=== PATIENT | male | born 1990 | race Caucasian/White ===

== ENCOUNTER 2021-09-29 03:17 | Emergency (ER) | payer OTHER, SELFPAY ==
[2021-09-29 04:24] VITALS: BP 118/85; PULSE 101; RESP 18; TEMP 37.7; O2SAT 96; BMI 30.3
[2021-09-29 04:46] LABS: Strep A Nucleic Acid Negative (Negative)
[2021-09-29 04:52] LABS: COVID-19 Test Negative (Negative)
[2021-09-29 05:50] VITALS: BP 114/76; PULSE 102; RESP 16; TEMP 37.1; O2SAT 96
--- NOTE | 2021-09-29 05:54 | PC.NURSE ---
Pt resting in NAD, breathing with ease on RA, skin warm dry and normal in appearance for age and race. Pt provided update on lab results of covid and strep negative status. Pt verbalizes understanding. Pt continues to await MD garcia. Pt calm and cooperative with pt care at this time. Stretcher remains in lowest locked position, rails raised, call saeed within reach.
--- NOTE | 2021-09-29 06:45 | ED.URI ---
HPI - URI/Sore Throat General Chief Complaint: General Medical Stated Complaint: throat infection ? Time Seen by Provider: 09/29/21 06:44 Source: patient Mode of arrival: ambulatory Limitations: no limitations History of Present Illness MD elicited complaint: sore throat Pertinent past history: other (vaccinated but exposed to COVID person 1 week ago) Onset (ago): week(s) (1) Consistency: constant Severity: moderate Description of mucous: clear Able to tolerate fluids by mouth: Yes Exacerbating factors: swallowing Relieving factors: nothing Context: sick contacts Associated symptoms: denies other symptoms Treatments prior to arrival: none Related Data Previous Rx's Medication Instructions Recorded amoxicillin 875 mg-potassium 1 tab PO BID #14 tab 09/29/21 clavulanate 125 mg tablet (Augmentin) Allergies Allergy/AdvReac Type Severity Reaction Status Date / Time No Known Allergies Allergy Verified 09/29/21 04:27 Review of Systems Review of Systems: Constitutional : no Fever, positive Chills, positive fatigue, positive Malaise ENT/Mouth : positive sore throat,no runny nose Eyes: No Discharge Cardiovascular : No Chest Pain, No SOB Respiratory : No Cough, No Sputum Gastrointestinal : No Nausea, No Vomiting, No Diarrhea Genitourinary : No Dysuria, No Urinary Frequency Musculoskeletal : no Myalgia Skin : No rash Neuro : No Headache PMFSH Past Medical History Medical History No known health problems Social History Social History (Updated 09/29/21 @ 07:21 by Mendy Chandler DO) Patient Tobacco Use Status: Never used Tobacco Advance Directives: No Advance Directives Information Provided: No Physical Exam Vital Signs: Vital Signs: Last Vital Signs Temp 98.7 F 09/29/21 05:50 Pulse 99 09/29/21 07:16 Resp 16 09/29/21 07:16 BP 115/70 09/29/21 07:16 Pulse Ox 97 09/29/21 07:16 BMI result Body Mass Index 30.3 Appearance: Alert. Oriented X3. No acute distress. Eyes: Pupils equal, round and reactive to light. 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 Pulses normal. Respiratory: No respiratory distress. Breath sounds normal. Abdomen: Soft and nontender. Skin: Skin warm and dry. Normal skin color. Normal skin turgor. Extremities: No lower extremity edema. No calf ttp Neuro: Oriented X 3. No motor deficit. No sensory deficit. 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 Lab Data Labs: Lab Results 09/29/21 09/29/21 Range/Units 04:31 04:31 COVID-19 (NOLAN) Negative (Negative) COVID-19 Clin Com See Note S. pyogenes GrpA ILDEFONSO Negative (Negative) Discharge Plan Discharge Clinical Impression: Pharyngitis Qualifiers: Pharyngitis/tonsillitis etiology: unspecified etiology Qualified Code(s): J02.9 - Acute pharyngitis, unspecified Patient Disposition: Home, Self-Care Instructions: Pharyngitis (ED) Additional Instructions: return to ED for any worsening symptoms or concerns if no better after 4 doses or if you feel worse please return Prescriptions: New amoxicillin-pot clavulanate [Augmentin] 875-125 mg tablet 1 tab PO BID Qty: 14 RF: 0
[2021-09-29] MEDS: Amoxicillin 500 MG CAPSULE PO (07:15)
[2021-09-29 07:16] VITALS: BP 115/70; PULSE 99; RESP 16; O2SAT 97
== END 2021-09-29 07:23 | disposition home or self-care (01) ==
PROVIDERS: Emergency Provider Emergency Medicine
DX: J02.9 Acute pharyngitis, unspecified (principal); Z20.822 Contact with and (suspected) exposure to COVID-19; Z79.899 Other long term (current) drug therapy
CPT/HCPCS: 36415; 87635; 87651; 99283; 99284

== ENCOUNTER 2022-01-28 01:40 | Emergency (ER) | payer OTHER, SELFPAY ==
[2022-01-28] MEDS: Acetaminophen 325 MG TABLET 975 MG PO (02:10)
[2022-01-28 02:15] VITALS: BP 140/69; PULSE 112; RESP 14; TEMP 38.7; O2SAT 98; BMI 30.3
[2022-01-28 02:35] LABS: COVID-19 Test Negative (Negative); IDNOW Serial# 16C4AD1C; Influenza A Positive (Negative)
[2022-01-28 02:36] LABS: Influenza B2 Negative (Negative)
--- NOTE | 2022-01-28 03:13 | ED_ITS ---
HPI - URI/Sore Throat General Chief Complaint: Fever Stated Complaint: Fever/Cough Time Seen by Provider: 01/28/22 03:13 Source: patient Mode of arrival: ambulatory History of Present Illness HPI Narrative: 41-year-old male without significant past medical history, denies any use of cigarettes or asthma who presents with onset of cough since Saturday evening into that is productive in nature but otherwise denies sore throat, h eadache, ear pain, but has had fevers that have been maximal to 102. Related Data Previous Rx's Medication Instructions Recorded amoxicillin 875 mg-potassium 1 tab PO BID #14 tab 09/29/21 clavulanate 125 mg tablet (Augmentin) Allergies Allergy/AdvReac Type Severity Reaction Status Date / Time No Known Allergies Allergy Verified 09/29/21 04:27 Review of Systems Review of Systems: Pertinent positives and negatives as stated in HPI 10 point review of systems is otherwise negative. PMFSH Past Medical History Source: nursing notes reviewed Medical History No known health problems Social History Social History Alcohol intake: never Patient Tobacco Use Status: Never used Tobacco Use of substances other than those prescribed or required for medical reasons: No Advance Directives: No Advance Directives Information Provided: No Physical Exam Vital Signs: Vital Signs: Last Vital Signs Temp 101.7 F H 01/28/22 02:15 Pulse 112 H 01/28/22 02:15 Resp 14 01/28/22 02:15 BP 140/69 H 01/28/22 02:15 Pulse Ox 98 01/28/22 02:15 BMI result Body Mass Index 30.3 VITAL SIGNS: Reviewed. GENERAL: Well developed, well nourished, in no acute distress. HEAD: Normocephalic/atraumatic EYES: PERRLA, EOMI EARS: Ext canals without abnormality, TMs non-bulging and non-erythematous NOSE: Nares patent bilateral OROPHARYNX: no oral lesions noted, posterior pharynx clear but with erythema without noted tonsillar enlargement/erythema/exudates NECK: Supple, no adenopathy LUNGS: Normal breath sounds, no tachypnea/wheeze/rhonchi/rales. SpO2<98> CARDIOVASCULAR: Regular rate and rhythm without noted murmurs ABDOMEN: Soft, non-tender, non-distended with bowel sounds. MUSCULOSKELETAL: No tenderness, deformities, or effusions noted on gross inspection. EXTREMITIES: No cyanosis, clubbing or edema. SKIN: Inspection of the skin reveals no rashes NEUROLOGIC: Alert and oriented x 4. Strength and sensation to light touch were grossly intact x 4. Course Course Course Narrative: 31-year-old male with history and clinical presentation consistent with viral syndrome and on review of all investigations patient is noted to have influenza A. This time he declines Tamiflu and is otherwise discharged home in stable condition after having received combination analgesics. MDM - URI/Sore Throat Lab Data Labs: Lab Results 01/28/22 01/28/22 Range/Units 02:12 02:12 COVID-19 (NOLAN) Negative (Negative) COVID-19 Clin Com See Note Influenza Type A (ILDEFONSO) Positive A (Negative) Influenza Type B (ILDEFONSO) Negative (Negative) Influenza A & B Note See Note Discharge Plan Discharge Clinical Impression: Viral infection, Influenza A Patient Disposition: Home, Self-Care Instructions: Viral Syndrome (ED), Influenza (ED) Additional Instructions: 1. Tylenol 1000 mg, orally, every 6 hours as needed for body aches, temperatures greater than 100.4, headaches. Do not exceed 4000 mg within 24 hours. 2. Ibuprofen 400 mg, orally with milk or food, every 6 hours as needed for body aches, temperatures greater than 100.4, headaches. 3. Be sure to rest and drink plenty of water and recommend [id number] cough suppressant. Return to the ER for worsening symptoms. Prescriptions: No Action amoxicillin-pot clavulanate [Augmentin] 875-125 mg tablet 1 tab PO BID Qty: 14 0RF Interventions: ED Discharge Assessment Last Done: 01/28/22 03:15
== END 2022-01-28 03:29 | disposition home or self-care (01) ==
PROVIDERS: Emergency Provider Student in an Organized Health Care Education/Training Program
DX: J10.1 Influenza due to other identified influenza virus with other respiratory manifestations (principal); B34.9 Viral infection, unspecified; Z20.822 Contact with and (suspected) exposure to COVID-19
CPT/HCPCS: 87502; 87635; 99283; 99284

== ENCOUNTER 2022-06-07 13:00 | Emergency (ER) | payer OTHER, SELFPAY ==
[2022-06-07 13:42] VITALS: BP 131/71; PULSE 88; RESP 18; TEMP 37.3; O2SAT 97; BMI 30.3
--- NOTE | 2022-06-07 13:44 | ECG_ITS ---
Test Reason : muscle spasm Blood Pressure : / mmHG Vent. Rate : 077 BPM Atrial Rate : 077 BPM P-R Int : 160 ms QRS Dur : 086 ms QT Int : 356 ms P-R-T Axes : 034 043 044 degrees QTc Int : 402 ms Normal sinus rhythm Normal ECG No previous ECGs available Referred By: Generic ED Physician Electronically Signed By:HENRY CHIANG
[2022-06-07 14:28] LABS: MANUAL DIFF FLAG NO
[2022-06-07 14:31] LABS: Basophils Percent Auto 0.5 % (0-2); Eosinophils Absolute Auto 0.2 X10*3/uL (0.0-0.4); Eosinophils Percent Auto 2.9 % (0-4); Hematocrit 42.8 % (42.0-52.0); Hemoglobin 15.9 g/dl (14.0-18.0); Imm Gran Abs Auto 0.05 X10*3/uL (0.00-0.03); Imm Gran Pct Auto 0.6 % (0.0-0.4); Lymphocytes Absolute Auto 1.7 X10*3/uL (1.2-4.9); Mean Corpuscular HGB Conc 37.1 g/dl (31.0-36.0); Mean Corpuscular Hemoglobin 31.8 pg (27.0-33.0); Mean Corpuscular Volume 85.6 fL (80.0-98.0); Mean Platelet Volume 9.8 fL (9.4-12.4); Monocytes Absolute Auto 0.7 X10*3/uL (0.1-1.2); Monocytes Percent Auto 8.8 % (2-11); Neutrophils Absolute Auto 5.3 x10*3/uL (2.0-8.3); Neutrophils Percent Auto 66.2 % (45-73); Platelet Count 265 X10*3/uL (160-400); Red Cell Distribution Width 12.6 % (11.0-16.0); White Blood Count 7.9 X10*3/uL (4.8-10.8)
[2022-06-07 14:45] LABS: Anion Gap 14 (12-20); Blood Urea Nitrogen 9 mg/dL (9-16); Calcium 9.5 mg/dL (8.4-10.2); Carbon Dioxide 28 mmol/L (22-29); Chloride 102 mmol/L (96-108); Creatinine Clr Calc Pharmacy 152.5; Estimated Glomerular Filt Rate > 60; Glucose Random 99 mg/dL (60-115); Potassium 3.9 mmol/L (3.3-5.1); Sodium 140 mmol/L (135-145)
[2022-06-07 15:09] LABS: Magnesium 2.2 mg/dL (1.6-2.6)
--- NOTE | 2022-06-07 15:17 | ED.GENADULT ---
HPI - General Adult General Chief complaint: General Medical Stated complaint: muscle spasm in chest Time Seen by Provider: 06/07/22 14:31 Source: patient Mode of arrival: ambulatory Limitations: no limitations History of Present Illness HPI narrative: 32 yo male presents to the ER for evaluation of left sided chest muscle twitches that started on his ride into work this morning at 6am. He reports a history of similar episodes. He states the twitching type pain is in between his ribs on the left side. It comes and goes. It was pretty constant when he got to work today so he came to the ER for evaluation. He states he has been worked up for chest pain before and has been told that it was not his heart. He admits to ongoing anxiety and feels it may be related to anxiety. He denies any shortness of breath, dyspnea, diaphoresis, nausea. No history of early heart disease in the family. He denies any injury or heavy lifting. MD complaint: Left-sided chest wall pain/muscle twitching Onset (ago): hour(s) Location: chest Radiation: non-radiation Severity: moderate Severity scale (1-10): 3 Quality: aching Pain Consistency: constant Relieving factors: none Exacerbating factors: none Associated symptoms: denies other symptoms Treatments prior to arrival: NSAID Related Data Previous Rx's Medication Instructions Recorded amoxicillin 875 mg-potassium 1 tab PO BID #14 tabs 09/29/21 clavulanate 125 mg tablet (Augmentin) Allergies Allergy/AdvReac Type Severity Reaction Status Date / Time No Known Allergies Allergy Verified 09/29/21 04:27 Review of Systems Review of Systems: Constitutional: No Fever, No Chills ENT/Mouth: No sore throat, No Rhinorrhea Cardiovascular: + Chest Pain, No SOB, No Orthopnea, No Edema Respiratory: No Cough, No Sputum, No Wheezing, No dyspnea Gastrointestinal: No Nausea, No Vomiting, No Diarrhea, No abdominal Pain Musculoskeletal: No joint pain, No Myalgias Skin: No Skin Lesions, No rash Neuro: No Weakness, No Numbness, No Dizziness, No Headache Psych:+Anxiety/Panic, No Depression Heme/Lymph: No Bruising, No Lymphadenopathy PMFSH Past Medical History Medical History No known health problems Social History Social History Alcohol intake: never Patient Tobacco Use Status: Never used Tobacco Advance Directives: No Advance Directives Information Provided: No Physical Exam ED Vital Signs: Vital Signs - 24 hr 06/07/22 13:42 Temperature 99.1 F Pulse Rate 88 Respiratory Rate 18 Blood Pressure 131/71 Pulse Oximetry 97 Oxygen Delivery Method Room Air BMI result Body Mass Index 30.3 Appearance: Alert. Oriented X3. No acute distress. Eyes: Pupils equal, round and reactive to light. ENT: Pharynx normal. Neck: Normal inspection. Neck supple. CVS: Normal heart rate and rhythm. Pulses normal. No anterior chest wall tenderness Respiratory: No respiratory distress. Breath sounds normal. Skin: Skin warm and dry. Normal skin color. Normal skin turgor. No rashes. Extremities: No lower extremity edema. Neuro/psych: Oriented X 3. No motor deficit. No sensory deficit. Makes brief eye contact, anxious. Course Course Course Narrative: 32 yo healthy male presenting with left sided chest muscle twitching and discomfort since this morning. History of similar episodes in the past. History of anxiety that is not treated. On arrival to the ER his vital signs are within normal limits. His exam is benign. His EKG did not show any ischemic changes. His lab workup was unremarkable. He is anxious. He has no cardiac risk factors. His ?twitching? was most likely due to anxiety. He reports his symptoms are worse as he got nervous about it. They are improved now. He is declining any need for counseling, therapy referral. He will make changes at home to his triggers. He has a primary care doctor he can follow-up with. Comfortable with discharge home. Medical Decision Making Lab Data Result diagrams: 06/07/22 14:14 06/07/22 14:14 Labs: Lab Results 06/07/22 06/07/22 Range/Units 14:14 14:14 WBC 7.9 (4.8-10.8) X10*3/uL RBC 5.00 (4.60-5.80) X10*6/uL Hgb 15.9 (14.0-18.0) g/dl Hct 42.8 (42.0-52.0) % MCV 85.6 (80.0-98.0) fL MCH 31.8 (27.0-33.0) pg MCHC 37.1 H (31.0-36.0) g/dl RDW 12.6 (11.0-16.0) % Plt Count 265 (160-400) X10*3/uL MPV 9.8 (9.4-12.4) fL Immature Gran % (Auto) 0.6 H (0.0-0.4) % Neut % (Auto) 66.2 (45-73) % Lymph % (Auto) 21.0 (20-40) % Darke % (Auto) 8.8 (2-11) % Eos % (Auto) 2.9 (0-4) % Baso % (Auto) 0.5 (0-2) % Lymph # (Auto) 1.7 (1.2-4.9) X10*3/uL Darke # (Auto) 0.7 (0.1-1.2) X10*3/uL Eos # (Auto) 0.2 (0.0-0.4) X10*3/uL Baso # (Auto) 0.0 (0.0-0.2) X10*3/uL Abs Immat Gran (auto) 0.05 H (0.00-0.03) X10*3/uL Absolute Neuts (auto) 5.3 (2.0-8.3) x10*3/uL Absolute Nucleated RBC 0.000 (0.0-0.012) X10*3/uL Nucleated RBC % (auto) 0.0 (0.0-0.2) /100WBC Sodium 140 (135-145) mmol/L Potassium 3.9 (3.3-5.1) mmol/L Chloride 102 (96-108) mmol/L Carbon Dioxide 28 (22-29) mmol/L Anion Gap 14 (12-20) BUN 9 (9-16) mg/dL Creatinine 0.89 (0.5-1.4) mg/dL Estim Creat Clear Calc 152.5 Estimated GFR > 60 Random Glucose 99 (60-115) mg/dL Calcium 9.5 (8.4-10.2) mg/dL Magnesium 2.2 (1.6-2.6) mg/dL Critical Care Time Critical Care Time Critical Care Time: No Discharge Plan Discharge Clinical Impression: Muscle twitch, Anxiety Patient Disposition: Home, Self-Care Instructions: Muscle Spasm (ED), Anxiety (ED) Additional Instructions: Your workup today was unremarkable. Recommend following up your primary care doctor. If you develop new or worsening symptoms call 911 or come back to the ER for further evaluation. Prescriptions: No Action amoxicillin-pot clavulanate [Augmentin] 875-125 mg tablet 1 tab PO BID Qty: 14 0RF Interventions: ED Discharge Assessment Last Done: 06/07/22 15:51 Discharge Date/Time: 06/07/22 16:02
== END 2022-06-07 16:02 | disposition home or self-care (01) ==
PROVIDERS: Physician Assistant; Emergency Provider Emergency Medicine Emergency Medical Services
DX: M62.838 Other muscle spasm (principal); F41.9 Anxiety disorder, unspecified
CPT/HCPCS: 36415; 80048; 83735; 85025; 93005; 99282; 99283

== ENCOUNTER 2022-09-30 13:37 | Emergency (ER) | payer OTHER, SELFPAY ==
[2022-09-30 13:43] VITALS: BP 122/74; PULSE 94; RESP 16; TEMP 36.9; O2SAT 96; BMI 29.7
--- NOTE | 2022-09-30 13:45 | ED_ITS ---
HPI - URI/Sore Throat General Chief Complaint: Fever <PATRICIA Dee - Last Filed: 09/30/22 13:47> Stated Complaint: Fever <PATRICIA Dee - Last Filed: 09/30/22 13:47> Time Seen by Provider: 09/30/22 15:17 <PATRICIA Dee - Last Filed: 09/30/22 13:47> Source: patient <PATRICIA Yin - Last Filed: 10/01/22 10:08> Mode of arrival: ambulatory <PATRICIA Yin - Last Filed: 10/01/22 10:08> Limitations: no limitations <PATRICIA Yin Last Filed: 10/01/22 10:08> History of Present Illness HPI Narrative: 32-year-old male presents to ED for fever and body aches for the past 3 days. Patient denies any chest pain, shortness of breath, coughing, weakness, or dizziness. <PATRICIA Yin Last Filed: 10/01/22 10:08> Related Data Home Medications: Previous Rx's Medication Instructions Recorded amoxicillin 875 mg-potassium 1 tab PO BID #14 tabs 09/29/21 clavulanate 125 mg tablet (Augmentin) <PATRICIA Dee - Last Filed: 09/30/22 13:47> Allergies/Adverse Reactions: Allergies Allergy/AdvReac Type Severity Reaction Status Date / Time No Known Allergies Allergy Verified 09/29/21 04:27 <PATRICIA Dee - Last Filed: 09/30/22 13:47> Review of Systems Review of Systems: Fever body aches <PATRICIA Yin Last Filed: 10/01/22 10:08> Yes all other systems are reviewed and are negative <PATRICIA Yin - Last Filed: 10/01/22 10:08> PMFSH Past Medical History Medical History: Medical History No known health problems <PATRICIA Dee Last Filed: 09/30/22 13:47> Social History Social History: Social History Alcohol intake: never Patient Tobacco Use Status: Never used Tobacco Advance Directives: No Advance Directives Information Provided: No <PATRICIA Dee Last Filed: 09/30/22 13:47> Physical Exam Vital Signs: Vital Signs: Last Vital Signs Temp 100.4 F 09/30/22 14:34 Pulse 86 09/30/22 14:34 Resp 16 09/30/22 14:34 BP 119/78 09/30/22 14:34 Pulse Ox 100 09/30/22 14:34 O2 Del Method 09/30/22 14:34 BMI result Body Mass Index 29.7 <PATRICIA Dee - Last Filed: 09/30/22 13:47> Vital Signs: Last Vital Signs Temp 100.4 F 09/30/22 14:34 Pulse 86 09/30/22 14:34 Resp 16 09/30/22 14:34 BP 119/78 09/30/22 14:34 Pulse Ox 100 09/30/22 14:34 O2 Del Method 09/30/22 14:34 BMI result Body Mass Index 29.7 <PATRICIA Yin - Last Filed: 10/01/22 10:08> Const: General: cooperative, healthy appearing, comfortable, no acute distress, well developed, alert, awake and Physically active; No acute distress <PATRICIA Yin Last Filed: 10/01/22 10:08> Orientation/consciousness: oriented to person, oriented to place, oriented to time and patient oriented x3 <PATRICIA Yin Last Filed: 10/01/22 10:08> HEENT: Head: Yes normal to inspection, Yes No palpable skull fracture present, Yes normocephalic and Yes atraumatic <PATRICIA Yin Last Filed: 10/01/22 10:08> Ears: hearing grossly normal bilaterally, external ears normal, TM's normal bilaterally, EAC's normal, mastoids normal and no periauricular adenopathy <PATRICIA Yin Last Filed: 10/01/22 10:08> General nose exam: Normal external nose present, Normal nares present and No nasal polyps present <PATRICIA Yin Last Filed: 10/01/22 10:08> Teeth and gingiva: dentition normal and gingiva normal <PATRICIA Yin Last Filed: 10/01/22 10:08> Throat: Yes posterior oropharynx normal and Yes tonsils normal <Gabriel lynch [facility] Last Filed: 10/01/22 10:08> Eyes: General: appearance normal, both eyes and all related structures <Gabriel Hidalgo [facility] Last Filed: 10/01/22 10:08> Neck: Neck: Yes normal visual inspection, Yes full ROM, Yes no lymphadenopathy, Yes no meningeal signs, Yes trachea midline, Yes supple, No anterior neck swelling and No tender <Gabrielbetsy Hidalgo [facility] Last Filed: 10/01/22 10:08> Chest: Chest palpation & inspection: normal inspection of the chest and normal palpation of entire chest wall <Gabriel Rocky [facility] Last Filed: 10/01/22 10:08> Resp: Effort & Inspection: normal respiratory effort and able to speak in complete sentences <Gabriel Rocky [facility] Last Filed: 10/01/22 10:08> Auscultation: clear to auscultation bilaterally <Gabriel Rocky [facility] Last Filed: 10/01/22 10:08> Cardio: Jugular venous distension: no JVD <Gabriel Rocky [facility] Last Filed: 10/01/22 10:08> Heart sounds: S1 normal heart sound present and S2 normal heart sound present <Gabriel Rocky [facility] Last Filed: 10/01/22 10:08> GI: Inspection: Yes normal to inspection and No abdominal wall ecchymosis <Gabriel Rocky [facility] Last Filed: 10/01/22 10:08> Palpation (GI): Soft to palpation, not firm, nontender, no guarding and not rigid <Gabriel Rocky [facility] Last Filed: 10/01/22 10:08> : General: No CVA tenderness and Yes no CVA tenderness <Gabriel Rocky PATRICIA Last Filed: 10/01/22 10:08> Back/Spine/Pelvis: Back: no CVA tenderness, No CVA tenderness and No back tenderness <Gabriel Rocky [facility] Last Filed: 10/01/22 10:08> Skin: General skin exam: no rashes or lesions noted and elasticity normal <Gabriel Rocky [facility] Last Filed: 10/01/22 10:08> Neuro: General: oriented to person, oriented to place, oriented to time, patient oriented x3, gait normal, tone normal, no meningeal signs, no focal motor deficits and CN's II-XI intact bilaterally <PATRICIA Yin - Last Filed: 10/01/22 10:08> Extrem: General: Yes normal to inspection and Yes full ROM <PATRICIA Yin Last Filed: 10/01/22 10:08> Psych: Appearance: grossly normal, well kempt and not disheveled <PATRICIA Yin - Last Filed: 10/01/22 10:08> Course Course Course Narrative: RME-13:45PM - 32yoM c No Sig PMHx is presenting to the ED c c/o fevers and body aches since saturday. Everyone in his family has had a stomach Bug. Denies any ear pain, sore throat, nasal congestion/rhinorrhea, cough, nausea/vomiting/diarrhea, abdominal pain, rashes or any other symptoms complaints or concerns at this time. Denies recent travel. Plan: COVID/RSV/flu swab ordered at this time. Patient is stable to go back to the waiting room to be evaluated in EM. <PATRICIA Dee - Last Filed: 09/30/22 13:47> Reevaluation(s) Reevaluation #1: Was ordered patient COVID positive <PATRICIA Yin - Last Filed: 10/01/22 10:08> Time: 16:28 <PATRICIA Yin - Last Filed: 10/01/22 10:08> Medications Administered Discontinued Medications Generic Name Dose Route Start Last Admin Trade Name Freq PRN Reason Stop Dose Admin Ibuprofen 600 mg 09/30/22 14:29 09/30/22 14:40 Ibuprofen 600 Mg Tablet PO 09/30/22 14:30 600 mg ONCE ONE Administration <PATRICIA Dee Last Filed: 09/30/22 13:47> Medications Administered Discontinued Medications Generic Name Dose Route Start Last Admin Trade Name Freq PRN Reason Stop Dose Admin Ibuprofen 600 mg 09/30/22 14:29 09/30/22 14:40 Ibuprofen 600 Mg Tablet PO 09/30/22 14:30 600 mg ONCE ONE Administration <PATRICIA Yin Last Filed: 10/01/22 10:08> Medical Decision Making Medical Decision Making MDM Narrative: 32-year-old male with history of fever and body aches. Positive COVID. Not suspecting pneumonia, meningitis, or any abdominal or etiology. No observation, admission, further workup needed <PATRICIA Yin Last Filed: 10/01/22 10:08> Differential Diagnosis Differential Diagnoses: The differential diagnosis associated with the presentation includes (Pneumonia) <PATRICIA Yin Last Filed: 10/01/22 10:08> Lab Data Labs: Lab Results 09/30/22 Range/Units 14:41 Influenza Type A (PCR) NEGATIVE (Negative) Influenza Type B (PCR) NEGATIVE (Negative) RSV RNA Qual (PCR) NEGATIVE (Negative) SARS-CoV-2 RNA (RT-PCR) POSITIVE A (Negative) <PATRICIA Dee Last Filed: 09/30/22 13:47> Lab Results 09/30/22 Range/Units 14:41 Influenza Type A (PCR) NEGATIVE (Negative) Influenza Type B (PCR) NEGATIVE (Negative) RSV RNA Qual (PCR) NEGATIVE (Negative) SARS-CoV-2 RNA (RT-PCR) POSITIVE A (Negative) <PATRICIA Yin Last Filed: 10/01/22 10:08> Discharge Plan Discharge Clinical Impression: COVID-19 <PATRICIA Dee Last Filed: 09/30/22 13:47> Patient Disposition: Home, Self-Care <PATRICIA Dee Last Filed: 09/30/22 13:47> Instructions: COVID-19 (Coronavirus Disease 2019) (ED) <PATRICIA Dee Last Filed: 09/30/22 13:47> Additional Instructions: You are positive for COVID-19. Recommend isolation for at least 7 days. Return to the ED for any chest pain, shortness of breath, weakness, leg swelling, calf pain, coughing up blood, O2 saturation less than 93% on any home portable O2 saturation, or any other concerning symptoms. <PATRICIA Dee Last Filed: 09/30/22 13:47> Prescriptions: No Action amoxicillin-pot clavulanate [Augmentin] 875-125 mg tablet 1 tab PO BID Qty: 14 0RF <PATRICIA Dee Last Filed: 09/30/22 13:47> Stand Alone Forms: Work/School Release <PATRICIA Dee - Last Filed: 09/30/22 13:47> Interventions: ED Discharge Assessment Last Done: 09/30/22 16:50 <PATRICIA Dee - Last Filed: 09/30/22 13:47> Discharge Date/Time: 09/30/22 16:51 <PATRICIA Dee - Last Filed: 09/30/22 13:47> Print Language: Dutch <PATRICIA Dee - Last Filed: 09/30/22 13:47>
[2022-09-30 14:34] VITALS: BP 119/78; PULSE 86; RESP 16; TEMP 38; O2SAT 100
[2022-09-30] MEDS: Ibuprofen 600 MG TABLET PO (14:40)
--- NOTE | 2022-09-30 14:43 | PC.NURSE ---
pt. complains of fever x 3 days and headache, body aches. he has a tempt of 100.4. gave him ibuprofen. sent swab for sars/flu/rsv to lab
[2022-09-30 15:28] LABS: Influenza A PCR NEGATIVE (Negative); Influenza B PCR NEGATIVE (Negative); Resp Syncy Virus RNA Qual PCR NEGATIVE (Negative); SARS COV2 PCR INHOUSE POSITIVE (Negative)
== END 2022-09-30 16:51 | disposition home or self-care (01) ==
PROVIDERS: Physician Assistant Medical; Emergency Provider Emergency Medicine
DX: U07.1 COVID-19 (principal); R50.9 Fever, unspecified; M79.10 Myalgia, unspecified site
CPT/HCPCS: 0241U; 99284

== ENCOUNTER 2024-01-25 07:43 | Emergency (ER) | payer OTHER, SELFPAY ==
[2024-01-25 07:45] VITALS: BP 110/85; PULSE 110; RESP 16; TEMP 36.8; O2SAT 99; BMI 25.8
[2024-01-25 08:04] LABS: Basophils Absolute Auto 0.1 X10*3/uL (0.0-0.2); Basophils Percent Auto 0.5 % (0-2); Eosinophils Percent Auto 0.1 % (0-4); Hematocrit 48.1 % (42.0-52.0); Hemoglobin 17.8 g/dl (14.0-18.0); Imm Gran Abs Auto 0.13 X10*3/uL (0.00-0.03); Imm Gran Pct Auto 0.7 % (0.0-0.4); Lymphocytes Absolute Auto 0.4 X10*3/uL (1.2-4.9); Lymphocytes Percent Auto 2.1 % (20-40); MANUAL DIFF FLAG SCAN; Mean Corpuscular Hemoglobin 31.5 pg (27.0-33.0); Mean Corpuscular Volume 85.1 fL (80.0-98.0); Mean Platelet Volume 9.7 fL (9.4-12.4); Monocytes Absolute Auto 0.7 X10*3/uL (0.1-1.2); Monocytes Percent Auto 4.1 % (2-11); Neutrophils Absolute Auto 16.6 x10*3/uL (2.0-8.3); Neutrophils Percent Auto 92.5 % (45-73); Platelet Count 292 X10*3/uL (160-400); Red Blood Count 5.65 X10*6/uL (4.60-5.80); Red Cell Distribution Width 12.7 % (11.0-16.0); SCAN SMEAR FLAG 1; White Blood Count 17.9 X10*3/uL (4.8-10.8)
--- NOTE | 2024-01-25 08:17 | ED_ITS ---
HPI - Nausea/Vomiting/Diarrhea General Chief complaint: Abdominal Pain Stated complaint: whole body cramping up Time Seen by Provider: 01/25/24 07:57 Source: patient Mode of arrival: ambulatory Limitations: no limitations History of Present Illness HPI Narrative: 33-year-old male who presents emergency department for evaluation of ?stomach bug ?. Patient states that his entire family is sick with nausea, vomiting and diarrhea. He states that last night he also became ill. He states he has had multiple episodes of nausea vomiting and diarrhea. He is also complaining of upper abdominal pain. He states that the pain feels like a squeezing sensation which is moderate to severe in intensity. He states he feels very dehydrated, his muscles are cramping, feels lightheaded and dizzy therefore he came to the emergency department for evaluation. Related Data Previous Rx's ?Medication ?Instructions ?Recorded amoxicillin 875 mg-potassium 1 tab PO BID #14 tabs 09/29/21 clavulanate 125 mg tablet (Augmentin) ondansetron 4 mg disintegrating 4 mg PO Q6-8H PRN nausea and 01/25/24 tablet vomiting #14 tabs Allergies Allergy/AdvReac Type Severity Reaction Status Date / Time No Known Allergies Allergy Verified 01/25/24 07:47 Review of Systems 2 Review of Systems: Yes all other systems are reviewed and are negative [facility] Past Medical History [facility] Narrative: Past medical history: None. Social history: He denies tobacco use. Occasionally drinks alcohol. He denies drug use. Medical History No known health problems Social History Social History Alcohol intake: never Patient Tobacco Use Status: Never used Tobacco Use of substances other than those prescribed or required for medical reasons: Yes Substance Use Type Other:: cbd 5d/wk Advance Directives: No Advance Directives Information Provided: No Physical Exam 2 Vital Signs: Vital Signs: Last Vital Signs Temp 99.9 F 01/25/24 10:02 Pulse 104 H 01/25/24 10:02 Resp 18 01/25/24 10:02 BP 106/79 01/25/24 10:02 Pulse Ox 95 01/25/24 10:02 O2 Del Method Room Air 01/25/24 10:02 BMI result Body Mass Index 25.8 Vital signs revealed an elevated heart rate of 110 otherwise unremarkable Exam: General: Awake, alert in no distress Head: Normocephalic, atraumatic EENT: PERRL, Lids normal, sclera normal, conjunctiva normal, nose normal , ears normal, throat without erythema or exudates Neck: Supple, no adenopathy Lung: breath sounds symmetric, no wheezing, rales or rhonchi Chest: symmetric movement, nontender Heart: regular rate and rhythm, normal S1, S2 no murmurs or rubs Abdomen: soft, mild to moderate diffuse tenderness, nondistended, normal bowel sounds Back: no vertebral tenderness, no CVAT Extremities: no deformities, moves all extremities symmetrically Neuro: Awake, alert, oriented, normal speech, cranial nerves intact, moves all extremities symmetrically Psych: Pleasant, cooperative Medications Administered Discontinued Medications Generic Name Dose Route Start Last Admin Trade Name Freq PRN Reason Stop Dose Admin Sodium Chloride 1,000 mls @ 999 mls/hr 01/25/24 08:17 01/25/24 09:37 Ns IV 01/25/24 09:17 Infused .Q1H1M STA Infusion Ketorolac Tromethamine 15 mg 01/25/24 08:17 01/25/24 08:24 Ketorolac Tromethamine 15 Mg/Ml Vial IVPUSH 01/25/24 08:18 15 mg ONCE STA Administration Ondansetron HCl 4 mg 01/25/24 08:17 01/25/24 08:24 Ondansetron Hcl 4 Mg/2 Ml Vial IVPUSH 01/25/24 08:18 4 mg ONCE ONE Administration Medical Decision Making Medical Decision Making [facility] Narrative: 33-year-old male with no significant past medical history who presents emergency department for evaluation of nausea vomiting diarrhea, abdominal pain, cramping, lightheadedness dizziness with symptoms starting last night. The patient states that he has had multiple episodes of vomiting and diarrhea with no blood in the diarrhea or emesis. He is complaining of moderate to severe upper abdominal pain. Differential diagnosis: ?Includes but is not limited to viral syndrome, electrolyte abnormalities, anemia, dehydration Following evaluation was ordered: CBC, CMP, lipase, COVID-19, influenza, RSV Patient was initially treated with the following: Toradol 15 mg IV, Zofran 4 mg IV, normal saline X1 L Course: 12:03 My independent interpretation patient's laboratory evaluation is as follows: WBC elevated 17,900 with left shift 92 % neutrophils. CO2 low 20. BUN elevated 17. Glucose elevated 139. COVID-19, influenza and RSV were negative Patient states that he does feel better but has continued to have nausea, myalgias and arthralgias therefore he was ordered to get 2nd dose of Toradol 15 mg IV Zofran 4 mg IV and a 2nd L of normal saline IV Admission/Observation Consideration of admission/observation: Escalation of care including admission/observation considered Lab Data [facility] Lab Attestation statement: I reviewed the patient's lab results. 01/25/24 07:56 01/25/24 07:56 Labs: Lab Results 01/25/24 01/25/24 Range/Units 07:56 08:29 WBC 17.9 H (4.8-10.8) X10*3/uL RBC 5.65 (4.60-5.80) X10*6/uL Hgb 17.8 (14.0-18.0) g/dl Hct 48.1 (42.0-52.0) % MCV 85.1 (80.0-98.0) fL MCH 31.5 (27.0-33.0) pg MCHC 37.0 H (31.0-36.0) g/dl RDW 12.7 (11.0-16.0) % Plt Count 292 (160-400) X10*3/uL MPV 9.7 (9.4-12.4) fL Immature Gran % (Auto) 0.7 H (0.0-0.4) % Neut % (Auto) 92.5 H (45-73) % Lymph % (Auto) 2.1 L (20-40) % [place] % (Auto) 4.1 (2-11) % Eos % (Auto) 0.1 (0-4) % Baso % (Auto) 0.5 (0-2) % Lymph # (Auto) 0.4 L (1.2-4.9) X10*3/uL [place] # (Auto) 0.7 (0.1-1.2) X10*3/uL Eos # (Auto) 0.0 (0.0-0.4) X10*3/uL Baso # (Auto) 0.1 (0.0-0.2) X10*3/uL Abs Immat Gran (auto) 0.13 H (0.00-0.03) X10*3/uL Absolute Neuts (auto) 16.6 H (2.0-8.3) x10*3/uL Absolute Nucleated RBC 0.000 (0.0-0.012) X10*3/uL Nucleated RBC % (auto) 0.0 (0.0-0.2) /100WBC Smear Tech's Comments VERIFIED Sodium 138 (135-145) mmol/L Potassium 4.4 (3.3-5.1) mmol/L Chloride 104 (96-108) mmol/L Carbon Dioxide 20 L (22-29) mmol/L Anion Gap 18 (12-20) BUN 17 H (9-16) mg/dL Creatinine 1.20 (0.5-1.4) mg/dL Estim Creat Clear Calc 91.2 Estimated GFR > 60 Random Glucose 139 H (60-115) mg/dL Calcium 10.4 H D (8.4-10.2) mg/dL Total Bilirubin 2.0 H (0.0-1.0) mg/dL AST 17 (5-37) U/L ALT 38 (0-40) U/L Alkaline Phosphatase 75 (39-117) U/L Total Protein 9.4 H (6.5-8.0) g/dL Albumin 5.3 H (3.5-5.0) g/dL Lipase 24 (8-78) U/L Influenza Type A (PCR) NEGATIVE (Negative) Influenza Type B (PCR) NEGATIVE (Negative) RSV RNA Qual (PCR) NEGATIVE (Negative) SARS-CoV-2 RNA (RT-PCR) NEGATIVE (Negative) Prescription Management I considered prescription management with: Other (Antiemetic) Discharge Plan Discharge Clinical Impression: Viral syndrome, Vomiting, Diarrhea, Acute dehydration Patient Disposition: Home, Self-Care Instructions: Viral Syndrome (ED) Additional Instructions: White blood cell count was elevated, this goes along with a viral infection, otherwise your electrolytes, kidney function and liver tests were normal. Your symptoms are consistent with a viral infection causing her vomiting, diarrhea, muscle aches and joint pains. Take ibuprofen 200 mg pills, 2 pills every 6 hours as needed for pain or fever. Take Tylenol (acetaminophen) 500 mg pills, 2 pills every 6 hours as needed for pain or fever. Take Zofran ODT 4 mg pills, 1 pill dissolved in your mouth every 8 hours as needed for nausea and vomiting. For the next 24 hours, stay on a BRANDON diet (bananas, rice, applesauce, tea and toast). Follow-up with your doctor in 2 days. Please return to the emergency department if your symptoms get worse or if you develop any symptoms that are concerning to you. Prescriptions: New ondansetron 4 mg tablet,disintegrating 4 mg PO Q6-8H PRN (Reason: nausea and vomiting) Qty: 14 0RF No Action amoxicillin-pot clavulanate [Augmentin] 875-125 mg tablet 1 tab PO BID Qty: 14 0RF Print Language: Qatari
[2024-01-25 08:24] VITALS: BP 115/82; PULSE 112; RESP 20; O2SAT 99
[2024-01-25] MEDS: ondansetron HCL 4 MG/2 ML VIAL IVPUSH ×2 (08:24→12:37)
[2024-01-25] MEDS: Ketorolac Tromethamine 15 MG/ML VIAL IVPUSH ×2 (08:24→12:37)
[2024-01-25] MEDS: 0.9 % Sodium Chloride 1,000 ML 999 ML IV ×2 (08:25→12:37)
[2024-01-25 08:27] LABS: Alanine Aminotransferase 38 U/L (0-40); Albumin Level 5.3 g/dL (3.5-5.0); Alkaline Phosphatase 75 U/L (39-117); Anion Gap 18 (12-20); Aspartate Amino Transferase 17 U/L (5-37); Blood Urea Nitrogen 17 mg/dL (9-16); Calcium 10.4 mg/dL (8.4-10.2); Carbon Dioxide 20 mmol/L (22-29); Chloride 104 mmol/L (96-108); Creatinine Clr Calc Pharmacy 91.2; Estimated Glomerular Filt Rate > 60; Glucose Random 139 mg/dL (60-115); Potassium 4.4 mmol/L (3.3-5.1); Sodium 138 mmol/L (135-145); Total Protein 9.4 g/dL (6.5-8.0)
[2024-01-25 08:34] LABS: SLIDE REVIEW VERIFIED
[2024-01-25 08:39] LABS: Influenza A PCR NEGATIVE (Negative); Influenza B PCR NEGATIVE (Negative); Resp Syncy Virus RNA Qual PCR NEGATIVE (Negative); SARS COV2 PCR INHOUSE NEGATIVE (Negative)
[2024-01-25 08:59] LABS: Lipase 24 U/L (8-78)
[2024-01-25 10:02] VITALS: BP 106/79; PULSE 104; RESP 18; TEMP 37.7; O2SAT 95
--- NOTE | 2024-01-25 10:07 | PC.NURSE ---
per md hurst ok to have ice chips/ukrainian ice- tolerating at this time, reports pain improved. no distress
[2024-01-25 12:38] VITALS: BP 121/74; PULSE 105; RESP 12; TEMP 36.9; O2SAT 97
[2024-01-25 13:36] VITALS: BP 121/74; PULSE 114; RESP 18; TEMP 36.9; O2SAT 98
== END 2024-01-25 13:38 | disposition home or self-care (01) ==
PROVIDERS: Emergency Provider Emergency Medicine Emergency Medical Services
DX: B34.9 Viral infection, unspecified (principal); E86.0 Dehydration; R11.2 Nausea with vomiting, unspecified; R10.10 Upper abdominal pain, unspecified; Z11.52 Encounter for screening for COVID-19; Z20.822 Contact with and (suspected) exposure to COVID-19; Z79.899 Other long term (current) drug therapy
CPT/HCPCS: 0241U; 36415; 80053; 83690; 85025; 96361; 96374; 96375; 96376; 99284; 99285; J1885; J2405

== ENCOUNTER 2024-08-10 09:31 | Emergency (ER) | payer OTHER, SELFPAY ==
[2024-08-10] VITALS (8 sets, daily range): BP systolic 123–153; BP diastolic 74–90; PULSE 79–99; RESP 16–20; TEMP 37–37.1; O2SAT 98–99; BMI 31.2
--- NOTE | ~2024-08-10 | XR_ITS ---
EXAMINATION: XR SHOULDER, LEFT CLINICAL INFORMATION: Dislocated shoulder. COMPARISON: None available. TECHNIQUE: Two views of the left shoulder. FINDINGS: There is evidence of a subcoracoid anterior shoulder dislocation. There is possible inferior labral irregularity. Acromioclavicular joint is intact. XR/XR shoulder LT min 2V IMPRESSION: Anterior shoulder dislocation. Electronically signed by: Baljeet Akers MD 08/10/2024 10:21 AM EDT
--- NOTE | ~2024-08-10 | XR_ITS ---
EXAMINATION: XR SHOULDER, LEFT CLINICAL INFORMATION: Post reduction COMPARISON: 08/10/2024 TECHNIQUE: Two views of the left shoulder. FINDINGS: There has been interval reduction of previously noted subcoracoid anterior shoulder dislocation. Possible inferior labral irregularity. Acromioclavicular joint intact. XR/XR shoulder LT min 2V IMPRESSION: 1. Interval reduction of previously noted subcoracoid anterior shoulder dislocation. Possible inferior labral irregularity. This study was presented today 08/02/2024 for interpretation. Stat results provided at this time as requested by referring provider. Electronically signed by: Lila Watson MD 08/10/2024 11:53 AM EDT
--- NOTE | 2024-08-10 09:46 | ED_ITS ---
HPI - Extremity Injury (Upper) General Chief Complaint: Extremity Injury, Upper Stated Complaint: FALL FROM TRUCK,L ARM PAIN/?DISLOCATION PER EMS Source: patient Mode of arrival: EMS Limitations: no limitations History of Present Illness HPI narrative: Patient presented to the emergency department complaining of left shoulder pain he states fell from the truck denies any neck pain denies any chest wall pain denies any abdominal pain complaint: injury to: left and shoulder Onset (ago): hour(s) (1) Other injuries: none Handedness: left Place: outdoors Severity: moderate Relieving factors: none Exacerbating factors: none Context: fall Related Data Previous Rx's ?Medication ?Instructions ?Recorded amoxicillin 875 mg-potassium 1 tab PO BID #14 tabs 09/29/21 clavulanate 125 mg tablet (Augmentin) ondansetron 4 mg disintegrating 4 mg PO Q6-8H PRN nausea and 01/25/24 tablet vomiting #14 tabs Allergies Allergy/AdvReac Type Severity Reaction Status Date / Time No Known Allergies Allergy Verified 08/10/24 09:52 Review of Systems Constitutional: Constitutional: Reports no additional constitutional complaints Cardiovascular: Cardiovascular: Reports no additional cardiovascular complaints Gastrointestinal: Gastrointestinal: Reports no additional gastrointestinal complaints [facility] Past Medical History [facility] Narrative: Denies Medical History No known health problems Social History Social History Alcohol intake: current Alcohol intake frequency: a few times a month Patient Tobacco Use Status: Never used Tobacco Smoked in Last 30 Days: No Use of substances other than those prescribed or required for medical reasons: No Advance Directives: No Advance Directives Information Provided: Yes Physical Exam Vital Signs: Vital Signs: Last Vital Signs Temp 98.6 F 08/10/24 09:51 Pulse 79 08/10/24 10:36 Resp 20 08/10/24 10:36 BP 144/79 H 08/10/24 10:36 Pulse Ox 98 08/10/24 10:36 O2 Del Method Room Air 08/10/24 09:51 BMI result Body Mass Index 31.2 Const: General: cooperative and well developed Nutritional Appearance: average body habitus Orientation/consciousness: patient oriented x3 HEENT: Head: Yes normal to inspection Mouth: Normal oral and palatal mucosa present Neck: Neck: Yes normal visual inspection and Yes full ROM Resp: Effort & Inspection: normal respiratory effort and able to speak in complete sentences Auscultation: clear to auscultation bilaterally Cardio: Jugular venous distension: no JVD Rate: regular rate Rhythm: regular rhythm GI: Inspection: Yes normal to inspection Palpation (GI): Soft to palpation, not firm, nontender and no guarding Skin: General skin exam: no rashes or lesions noted Rashes: no rashes Neuro: General: patient oriented x3 Extrem: Other: Left shoulder deformity unable to move the shoulder Course Reevaluation(s) Reevaluation #1: X-ray show left shoulder dislocation, we will do procedural sedation, consent signed, patient is ASA 1,Mallampati 1 Time: 10:33 Reevaluation #2: Under propofol sedation and 160 mg the shoulder was relocated, patient tolerated the procedure well he will be discharged home with follow-up with Time: 11:02 Medications Administered Generic Name Dose Route Start Last Admin Trade Name Freq PRN Reason Stop Dose Admin Sodium Chloride 1,000 mls @ 999 mls/hr 08/10/24 10:30 08/10/24 10:30 Ns IVCONT 08/10/24 11:30 999 mls/hr .Q1H1M [facility] Administration Discontinued Medications Generic Name Dose Route Start Last Admin Trade Name Freq PRN Reason Stop Dose Admin Hydromorphone HCl 0.5 mg 08/10/24 09:45 08/10/24 09:56 Hydromorphone Hcl 0.5 Mg/0.5 Ml Syringe IVPUSH 08/10/24 09:46 0.5 mg ONCE ONE Administration Protocol Hydromorphone HCl 0.5 mg 08/10/24 10:08 08/10/24 10:15 Hydromorphone Hcl 0.5 Mg/0.5 Ml Syringe IVPUSH 08/10/24 10:09 0.5 mg ONCE ONE Administration Protocol Medical Decision Making Medical Decision Making [facility] Narrative: Patient presented with left shoulder injury we will obtain imaging Differential Diagnosis Differential Diagnoses: The differential diagnosis associated with the presentation includes Shoulder dislocation/shoulder fracture Admission/Observation Consideration of admission/observation: Escalation of care including admission/observation considered Independent Interpretation I performed an independent interpretation of an: Plain X-Ray Interpretation: Personally reviewed interpreted the x-ray as left shoulder dislocation Radiology Impression Discussion of test interpretation with radiology: I have reviewed the radiologist's reading. Independent Historian Clinical information obtained from an independent historian. History obtained from or confirmed by: Spouse Procedures Procedure Narrative Procedure Narrative: Procedural sedation: 160 mg propofol administered, procedure started at 10:46 a.m. ended at 11 a.m. tolerated well no complication Orthopedic Joint Reduction Joint #1: Time Out Performed: Yes Side: left Joint Reduction Location: shoulder Analgesia: procedural sedation Shoulder Technique Used (if applicable): traction/counter-traction and external rotation Technique used: traction/counter-traction Post-reduction neuro exam: intact Post-reduction vascular: intact Post Reduction X-Ray Obtained: Yes Post Reduction X-Ray Results: reduced Splint Applied: Yes Patient Tolerated Procedure: well Discharge Plan Discharge Clinical Impression: Dislocation of shoulder Qualifiers: Encounter type: initial encounter Laterality: left Qualified Code(s): S43.005A - Unspecified dislocation of left shoulder joint, initial encounter Prescriptions: No Action amoxicillin-pot clavulanate [Augmentin] 875-125 mg tablet 1 tab PO BID Qty: 14 0RF ondansetron 4 mg tablet,disintegrating 4 mg PO Q6-8H PRN (Reason: nausea and vomiting) Qty: 14 0RF Print Language: Belarusian
[2024-08-10] MEDS: HYDROmorphone HCl 0.5 MG/0.5 ML SYRINGE IVPUSH ×2 (09:56→10:15)
[2024-08-10] MEDS: 0.9 % Sodium Chloride 1,000 ML 999 ML IVCONT (10:30)
[2024-08-10] MEDS: propofoL 200 MG/20 ML VIAL 100 MG IVPUSH (10:45)
[2024-08-10] MEDS: propofoL 200 MG/20 ML VIAL 60 MG IVPUSH (10:46)
== END 2024-08-10 11:39 | disposition home or self-care (01) ==
PROVIDERS: Emergency Provider Emergency Medicine
DX: S43.005A Unspecified dislocation of left shoulder joint, initial encounter (principal); W17.89XA Other fall from one level to another, initial encounter; M25.512 Pain in left shoulder; Y93.89 Activity, other specified; Y92.410 Unspecified street and highway as the place of occurrence of the external cause; Y99.9 Unspecified external cause status
CPT/HCPCS: 23650; 73030; 96361; 96374; 96375; 99284; 99285; J1171; J2704

== ENCOUNTER 2024-08-21 00:10 | Emergency (ER) | payer OTHER, SELFPAY ==
[2024-08-21 00:15] VITALS: BP 106/65; PULSE 91; RESP 16; TEMP 37; O2SAT 96; BMI 30.2
--- NOTE | 2024-08-21 01:27 | ED.BACK ---
HPI - Back Pain/Injury General Chief Complaint: Back Pain/Injury Stated Complaint: back pain Time Seen by Provider: 08/21/24 01:27 Source: patient Mode of arrival: ambulatory Limitations: no limitations History of Present Illness ED Provider: sallie STONER Narrative: Patient apparently had left shoulder dislocation a week ago now comes here as he has pain in the right upper back and side of the neck for last few days no fall no recent injury Related Data Previous Rx's ?Medication ?Instructions ?Recorded amoxicillin 875 mg-potassium 1 tab PO BID #14 tabs 09/29/21 clavulanate 125 mg tablet (Augmentin) ondansetron 4 mg disintegrating 4 mg PO Q6-8H PRN nausea and 01/25/24 tablet vomiting #14 tabs cyclobenzaprine 10 mg tablet 10 mg PO Q8H #20 tabs 08/21/24 lidocaine 4 % topical patch 1 patch topical DAILY PRN pain #10 08/21/24 (Salonpas (lidocaine)) ea Allergies Allergy/AdvReac Type Severity Reaction Status Date / Time No Known Allergies Allergy Verified 08/21/24 00:18 Review of Systems Review of Systems: Yes all other systems are reviewed and are negative [facility] Past Medical History Medical History No known health problems Social History Social History Alcohol intake: current Alcohol intake frequency: a few times a month Patient Tobacco Use Status: Never used Tobacco Physical Exam Vital Signs: Vital Signs: Last Vital Signs Temp 98.6 F 08/21/24 00:15 Pulse 91 08/21/24 00:15 Resp 16 08/21/24 00:15 BP 106/65 08/21/24 00:15 Pulse Ox 96 08/21/24 00:15 O2 Del Method Room Air 08/21/24 00:15 BMI result Body Mass Index 30.2 Appearance: Alert. Oriented X3. No acute distress. ENT: Pharynx normal. Oral Mucosa moist Neck: Normal inspection. Neck supple. No midline tenderness CVS: Normal heart rate and rhythm. Pulses normal. Respiratory: No respiratory distress. Equal air entry bilateral, no wheezing/rales/rhonchi Skin: Skin warm and dry. Normal skin color. Normal skin turgor. Extremities: No lower extremity edema. back: Tenderness in right rhomboids area and trapezius muscles no spinal tenderness no midline tenderness Neuro: Oriented X 3. Medical Decision Making Medical Decision Making [facility] Narrative: Patient with muscular pain and rhomboids area likely strain from post position because of left shoulder dislocation will prescribe Flexeril and Lidoderm patch Discharge Plan Discharge Clinical Impression: Thoracic back pain Patient Disposition: Home, Self-Care Instructions: Thoracic Pain (ED) Additional Instructions: Take ibuprofen 600 mg every 6 hours as needed Muscle relaxants as advised Follow with your PCP/orthopedic if not better Apply lidocaine patch at the painful area 12 hours a day as needed Prescriptions: New cyclobenzaprine 10 mg tablet 10 mg PO Q8H Qty: 20 0RF lidocaine [Salonpas (lidocaine)] 4 % adhesive patch,medicated 1 patch topical DAILY PRN (Reason: pain) Qty: 10 0RF No Action amoxicillin-pot clavulanate [Augmentin] 875-125 mg tablet 1 tab PO BID Qty: 14 0RF ondansetron 4 mg tablet,disintegrating 4 mg PO Q6-8H PRN (Reason: nausea and vomiting) Qty: 14 0RF Print Language: Hungarian
[2024-08-21] MEDS: Lidocaine 4 % Patch ADH..PATCH 1 PATCH TRANSDERMA (01:43)
[2024-08-21] MEDS: Cyclobenzaprine HCl 10 MG TABLET PO (01:44)
[2024-08-21 01:54] VITALS: BP 107/20; PULSE 75; RESP 20; TEMP 36.8; O2SAT 98
[2024-08-21 02:00] VITALS: BP 107/70; PULSE 75; RESP 20; TEMP 36.8; O2SAT 98
== END 2024-08-21 02:05 | disposition home or self-care (01) ==
PROVIDERS: Emergency Provider Internal Medicine
DX: M54.6 Pain in thoracic spine (principal)
CPT/HCPCS: 99283; 99284

== ENCOUNTER 2024-08-28 08:45 | Outpatient (AMB) | payer OTHER, SELFPAY ==
--- NOTE | 2024-08-28 09:05 | MHC.OFFVIS ---
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 Patient reports that he fell down stepping from his truck to his trailer and he felt his left shoulder out of its socket. He also mentions that his right shoulder got hurt as well but not as much as the left. 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 The patient presented to the ED via EMS on 08/10/24 status post a fall from the truck. X-rays of the left shoulder were obtained in the ER, which showed a dislocated shoulder. Therefore, the left shoulder was reduced in the ER, and repeat x-rays were obtained post-reduction. While in the office today, the patient reports he was working in the area where the trailer hitches to his truck. He was standing on one of the steel platforms and slipped off and had a fall. He landed on the platform and it went under his left shoulder. He pushed his left shoulder upwards, resulting in dislocation of the left shoulder. His right shoulder was hit on the bumper of his truck on the way down as well. He went to the ED, and x-rays of the left shoulder were obtained in the ER, which was found to have a dislocation. Then the left shoulder was reduced in the ER. He mentions having one prior left shoulder dislocation, 15 years ago. He reports pain is worse in the left shoulder than in the right shoulder. He also stated that he was having mild muscle spasms in the back of the bilateral shoulder. He was given a muscle relaxant, cyclobenzaprine. He tried it for two days without relief. The patient also mentions numbness in the bilateral upper extremities when he lies down at night. 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 External rotation to 45 degrees. Able to reach T12. Mild pain with crossbody reach. Unable to assess empty can due to pain. Negative drop arm. Reports numbness and tingling at night. Right shoulder: Full range of motion in all planes with pain. Reports numbness and tingling at night. Assessment & Plan Assessment & Plan (1) Sprain of right shoulder: Code(s): S43.401A - Unspecified sprain of right shoulder joint, initial encounter Category: Medical (2) Recurrent dislocation, left shoulder: Code(s): M24.412 - Recurrent dislocation, left shoulder Category: Medical Plan Mr. Holcomb is a 34-year-old left hand dominant male who presents in the office today, as a new patient, for an evaluation of a left shoulder dislocation and right shoulder pain. The patient presented to the ED via EMS on 08/10/24 status post a fall from the truck. X-rays of the left shoulder were obtained in the ER, which showed a dislocated shoulder. Therefore, the left shoulder was reduced in the ER, and repeat x-rays were obtained post-reduction. While in the office today, the patient reports he was working in the area where the trailer hitches to his truck. He was standing on one of the steel platforms and slipped off and had a fall. He landed on the platform and it went under his left shoulder. He pushed his left shoulder upwards, resulting in dislocation of the left shoulder. His right shoulder was hit on the bumper of his truck on the way down as well. He went to the ED, and x-rays of the left shoulder were obtained in the ER, which was found to have a dislocation. Then the left shoulder was reduced in the ER. He mentions having one prior left shoulder dislocation, 15 years ago. He reports pain is worse in the left shoulder than in the right shoulder. He also stated that he was having mild muscle spasms in the back of the bilateral shoulder. He was given a muscle relaxant, cyclobenzaprine. He tried it for two days without relief. The patient also mentions numbness that occurs in the bilateral upper extremities only when he lies down at night. An MRI order for the left shoulder was placed in the office today to further evaluate the integrity of the shoulder. I have also placed a referral to physical therapy. We will continue to monitor for improvement of the numbness and tingling in the bilateral upper extremities. Should the symptoms continue or worsen the patient will contact the office, and our next step would be an EMG study to further evaluate the integrity of the nerves. Follow-up will be in 4 weeks after the MRI is obtained, or sooner if needed. X-rays of the left shoulder, obtained on 08/10/24, revealed: Anterior shoulder dislocation. X-rays of the left shoulder (post-reduction), obtained on 08/10/24, revealed: 1. Interval reduction of previously noted subcoracoid anterior shoulder dislocation. Possible inferior labral irregularity. This study was presented 08/02/2024 for interpretation. Stat results provided at this time as requested by the referring provider. Orders: Orders MR shoulder LT wo con 08/28/24 M24.412 - Recurrent dislocation, left shoulder PT Evaluation and Treatment 08/28/24 M24.412 - Recurrent dislocation, left shoulder, S43.401A - Unspecified sprain of right shoulder joint, initial encounter Medications: Discontinued amoxicillin-pot clavulanate 875-125 mg (Augmentin) Discontinued Reason: Patient no longer taking 1 tab PO BID 14 tabs 0RF ondansetron Discontinued Reason: Patient no longer taking 4 mg PO Q6-8H PRN 14 tabs 0RF nausea and vomiting cyclobenzaprine Discontinued Reason: Patient no longer taking 10 mg PO Q8H 20 tabs 0RF lidocaine 4% (Salonpas (lidocaine)) Discontinued Reason: Patient no longer taking 1 patch topical DAILY PRN 10 ea 0RF pain Patient Instructions: Scribed by Chelsi Wilcox, medical assistant internal medicine, for Lakeisha Luiza PLASCENCIA on 08/28/24 at 9:25 am EST. Coding Level of Care Code New Pt Level 4 (95135) Diagnoses Sprain of right shoulder S43.401A Recurrent dislocation, left shoulder M24.412
== END 2024-08-28 09:26 | disposition home or self-care (01) ==
PROVIDERS: Visit Provider Physician Assistant
DX: S43.401A Unspecified sprain of right shoulder joint, initial encounter (principal); M24.412 Recurrent dislocation, left shoulder; V58.4XXA Person boarding or alighting a pick-up truck or van injured in noncollision transport accident, initial encounter; Z04.2 Encounter for examination and observation following work accident
CPT/HCPCS: 99204

== ENCOUNTER → 2024-08-28 08:45 | Outpatient (BNVA) | payer OTHER, SELFPAY | PROVIDERS: Visit Provider Physician Assistant | DX: M24.412 Recurrent dislocation, left shoulder (principal); S43.401A Unspecified sprain of right shoulder joint, initial encounter; W17.89XA Other fall from one level to another, initial encounter; Y93.9 Activity, unspecified; Y92.9 Unspecified place or not applicable; Y99.9 Unspecified external cause status | CPT/HCPCS: 99202 ==

== ENCOUNTER 2024-10-06 07:10 | Outpatient (REF) | payer OTHER, SELFPAY ==
--- NOTE | ~2024-10-06 | XR_ITS ---
EXAMINATION: XR ORBITS PRE-MRI CLINICAL INFORMATION: Pre-MRI orbits. COMPARISON: None TECHNIQUE: 3 views of the orbits for pre-MRI screening. FINDINGS: No radiopaque foreign body appreciated in the region of the orbits. No gross air-fluid level appreciated in the maxillary sinuses. XR/XR pre mri screening IMPRESSION: No radiopaque foreign body appreciated in the region of the orbits. This study was presented today to October 06, 2024 for interpretation. Stat results provided at this time as requested by referring provider. Electronically signed by: Lila Watson MD 10/06/2024 09:37 AM EST
== END 2024-10-06 07:11 | disposition home or self-care (01) ==
LOC: HO.XRAY 07:10
PROVIDERS: Visit Provider Radiology Diagnostic Radiology
DX: Z13.89 Encounter for screening for other disorder (principal)

== ENCOUNTER 2024-10-08 07:35 | Outpatient (REF) | payer OTHER, SELFPAY ==
--- NOTE | ~2024-10-08 | MR_ITS ---
EXAMINATION: MR SHOULDER WITHOUT CONTRAST LEFT CLINICAL INFORMATION: Recurrent dislocation, left shoulder M24.412. Pain, limited ROM, slipped and fell. COMPARISON: X-ray left shoulder 08/10/2024. TECHNIQUE: MRI of the shoulder without contrast was performed on a high-field scanner. FINDINGS: ROTATOR CUFF: Intact. No muscle atrophy or fatty infiltration. BICEPS: Intact. CORACOACROMIAL ARCH: The undersurface of the acromion is flat with lateral downsloping. Mild acromioclavicular osteoarthritis with mild edema. LABRUM/CAPSULE: Linear fluid signal within the undersurface of the superior, posterosuperior, posterior, and posteroinferior labrum, consistent with nondisplaced undersurface tearing. There is heterogeneity of the anterior and anteroinferior labrum with elevation of the labral tissue and underlying irregular increased T2 signal, consistent with complex tearing. Mild underlying glenoid edema without a definite fracture fragment. 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 Intact joint capsule. GLENOHUMERAL JOINT/MARROW: Cortical depression with minimal marrow edema at the posterosuperior aspect of the humeral head measuring up to 2.5 x 2.8 cm, consistent with a Hill-Sachs deformity. Humeral head currently well-seated within the glenoid. Moderate joint effusion. Posterior loose body measuring up to 0.8 cm. MR/MR shoulder LT wo con IMPRESSION: 1. Findings consistent with a prior anterior shoulder dislocation including a Hill-Sachs deformity and complex tearing of the anterior and anteroinferior labrum. Mild underlying marrow edema within the glenoid without a definite fracture fragment. 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 2. Nondisplaced undersurface tearing of the superior, posterosuperior, posterior, and posteroinferior labrum. 3. Moderate joint effusion with posterior loose body measuring up to 0.8 cm. 4. Mild acromioclavicular osteoarthritis with mild edema. Electronically signed by: Nile Freeman MD 10/08/2024 12:49 PM [facility]
== END 2024-10-08 07:36 | disposition home or self-care (01) ==
LOC: HO.MRI 07:35
PROVIDERS: Visit Provider Physician Assistant
DX: M24.412 Recurrent dislocation, left shoulder (principal)
CPT/HCPCS: 73221

== ENCOUNTER 2024-10-22 14:20 | Outpatient (AMB) | payer OTHER, SELFPAY ==
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
== END 2024-10-22 14:56 | disposition home or self-care (01) ==
PROVIDERS: Visit Provider Physician Assistant
DX: M24.412 Recurrent dislocation, left shoulder (principal)
CPT/HCPCS: 99213

== ENCOUNTER → 2024-10-22 14:20 | Outpatient (BNVA) | payer OTHER, SELFPAY | PROVIDERS: Visit Provider Physician Assistant | DX: M24.412 Recurrent dislocation, left shoulder (principal) | CPT/HCPCS: 99212 ==

== ENCOUNTER 2025-06-11 10:34 | Emergency (ER) | payer OTHER, SELFPAY ==
--- NOTE | ~2025-06-11 | XR_ITS ---
EXAMINATION: XR FOOT 3 OR MORE VIEWS RIGHT HISTORY: blunt injury COMPARISON: There are no prior studies available for comparison. FINDINGS: Three views of the right foot are submitted. Osseous mineralization is normal. There is no fracture or dislocation. The joint spaces are preserved. The soft tissues are unremarkable. XR/XR foot RT min 3V IMPRESSION: Unremarkable examination of the right foot. Electronically signed by: Polo Pro MD 06/11/2025 11:16 AM EDT
[2025-06-11 10:56] VITALS: BP 113/79; PULSE 74; RESP 16; TEMP 36.6; O2SAT 97; BMI 30.3
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
[2025-06-11 12:20] VITALS: BP 113/79; PULSE 74; RESP 16; TEMP 36.6; O2SAT 97
--- OUTSIDE RECORDS SUMMARY | 2025-06-11 12:26 | XMS_ITS | Clinical Summary ---
Author Organization [facility] Address [address] [place] [id number] Phone Care Team Providers Care Glassware Maker Name Role Phone Afia Jackman DO Primary Car e Provider Medications No known medications Active Problems No known active problems Social History Tobacco Use Types Packs/Day Years Used Date Smoking Tobacco: Never Assessed Education Answer Date Recorded Are you interested in more education? Not on minh e 04/21/2024 Are you concerned about learning? Not on file 04/21/2024 No 04/21/2024 No 04/21/2024 Digital Access Answer Date Recorded No 04/21/2024 No 04/21/2024 Reliable internet access at home? Not on file 04/21/2024 Device with a working camera? Not on file Sex and Gender Information Value Date Recorded Sex Assigned at Not on file Legal Sex Male 9:01 PM EDT Gender Identity Not on file Sexual Orientation Not on file Plan of Treatment Health Maintenance Due Date Last Done Comments Adult Td,Tdap Booster 1991 DEPRESSION SCREENING 2003 SMOKING Hx and SMOKELESS TOB ACCO SCREENING 2004 HEPATITIS C SCREENING 2009 HIV ONE-TIME SCREENING (18-6 5 YEARS) 2009 COVID-19 VACCINE (2023-2 5 season) 2024 HEPATITIS A VACCINES Aged Out No long er eligible based on patient's age to complete this topic HIB VACCINES Aged Out No longer eligi ble based on patient's age to complete this topic MENINGOCOCCAL VACCINES (ACWY) Aged Out No longer eligible based on patient's age to complete this topic MENINGOCOCCAL VACCINES (B) Aged Out N o longer eligible based on patient's age to complete this topic PNEUMOCOCCAL VACCINES (0-49 years) Aged Out No longer eligible based on patient's age to complete this topic Medical Devices Not on file Insurance [employer] [place] [address] [address] [place] [address] [address] [place] [address] [place] [address] [place] [address] [place] [address] [employer] Care Teams Glassware Maker Relationship Specialty Start Date End Date Afia Jackman DO [address] [place] [address] PCP - General Internal Medicine 04/09/24 Additional Source Comments The information contained in this document represents components of the legal health record. It is not the complete legal health record.[facility]
== END 2025-06-11 12:21 | disposition home or self-care (01) ==
PROVIDERS: Emergency Provider Emergency Medicine; PCP Internal Medicine
DX: S97.81XA Crushing injury of right foot, initial encounter (principal); S91.331A Puncture wound without foreign body, right foot, initial encounter; M79.671 Pain in right foot; X58.XXXA Exposure to other specified factors, initial encounter; Y93.55 Activity, bike riding; Y92.9 Unspecified place or not applicable; Y99.9 Unspecified external cause status
CPT/HCPCS: 73630; 99283; 99284

== ENCOUNTER → 2025-06-11 11:02 | Outpatient (BNV) | payer OTHER, SELFPAY | PROVIDERS: Emergency Provider Emergency Medicine; PCP Internal Medicine; Visit Provider Radiology Diagnostic Radiology | DX: S91.331A Puncture wound without foreign body, right foot, initial encounter (principal); W22.8XXA Striking against or struck by other objects, initial encounter | CPT/HCPCS: 73630 ==